=== PATIENT | male | born 1935 | race Hispanic/Latino ===

== ENCOUNTER 2022-08-23 07:03 | Day surgery (SDC) | payer OTHER, MEDICARE ==
[2022-08-21 12:44] LABS: BASOPHILS % (AUTO) 0.5 % (0.0-5.0); HEMATOCRIT 36.4 % (42-54); LYMPHOCYTES % (AUTO) 25.3 % (21.0-51.0); MEAN CORPUSCULAR HGB CONC 33.8 g/dL (32.0-36.0); MEAN CORPUSCULAR VOLUME 94.8 fL (79-99); MONOCYTES % (AUTO) 10.1 % (3.0-13.0); NEUTROPHILS % (AUTO) 61.9 % (40.0-77.0); PLATELET COUNT (AUTO) 223 K/uL (130-400); RED BLOOD CELL COUNT(AUTO) 3.84 MIL/uL (4.50-6.20); RED CELL DISTRIBUTION WIDTH 13.2 % (11.0-15.5); WHITE BLOOD COUNT (AUTO) 6.4 K/uL (4.8-10.8)
[2022-08-21 12:53] LABS: CREATININE 1.2 mg/dL (0.5-1.5); POTASSIUM 3.7 mmol/L (3.5-5.1)
[2022-08-21 12:56] VITALS: BP 140/59
[~2022-08-23] VITALS: Ht 157.5 cm; Wt 65.1 kg
[2022-08-23] VITALS (20 sets, daily range): BP systolic 99–186; BP diastolic 47–73
[~2022-08-23 07:03] MED LIST: FINA5TAB41 PO; LEVOFLOXACIN 500 MG/D5W 100 ML 100 ML IV SCH; LOSA1TAB42 PO; MITOMYCIN 40 MG SYR.W..INJ IV SCH; OMEP20CA12 PO; SERT-438 PO; SIMV-43 PO
[2022-08-23] MEDS ORDERED: LACTATED RINGERS 1000ML 1,000 ML IV ONE (08:04)
[2022-08-23] MEDS ORDERED: LIDOCAINE PF 100MG/5ML (2%) SYRINGE 5ML ONE (09:35)
[2022-08-23] MEDS ORDERED: DEXAMETHASONE SOD PHOSPHATE 10MG/ML 1ML VIAL ONE (09:35)
[2022-08-23] MEDS ORDERED: MIDAZOLAM HCL 1 MG/ML 2ML VIAL ONE (09:36)
[2022-08-23] MEDS ORDERED: ROCURONIUM 10MG/1ML SYR 10 MG/ML ML ONE (09:36)
[2022-08-23] MEDS ORDERED: PROPOFOL 10 MG/ML 20ML VIAL IV ONE (09:36)
[2022-08-23] MEDS ORDERED: ONDANSETRON 4MG INJ ONE (09:36)
[2022-08-23] MEDS ORDERED: FENTANYL CITRATE PF 50 MCG/1 ML 2ML VIAL ONE ×2 (09:36→11:25)
[2022-08-23] MEDS ORDERED: EPHEDRINE SULFATE 50 MG/ML AMPULE ONE (09:37)
[2022-08-23] MEDS ORDERED: IOHEXOL-350 50ML VIAL IV ONE (09:39)
[2022-08-23] MEDS ORDERED: HYDRALAZINE 20MG/ML VIAL ONE ×2 (10:33→12:52)
[2022-08-23] MEDS ORDERED: GLYCOPYRROLATE 1 MG/5 ML SYRINGE ONE (10:53)
[2022-08-23] MEDS ORDERED: NEOSTIGMINE 5MG/5ML SYR IV ONE (10:53)
[2022-08-23] MEDS ORDERED: MEPERIDINE-PF 25 MG/ML SYG ONE (10:58)
[2022-08-23] MEDS ORDERED: FLUMAZENIL 0.1MG/1ML 5ML VIAL IV ONE (12:20)
[2022-08-23] MEDS ORDERED: PHENAZOPYRIDINE HCL 200 MG TABLET ONE (13:30)
== END 2022-08-23 14:00 | disposition home or self-care (01) ==
LOC: DAH 07:03
PROVIDERS: ATTEND Urology
DX: R31.9 Hematuria, unspecified (principal); Z20.822 Contact with and (suspected) exposure to COVID-19; C67.1 Malignant neoplasm of dome of bladder; C67.4 Malignant neoplasm of posterior wall of bladder; N32.0 Bladder-neck obstruction; N28.1 Cyst of kidney, acquired; R97.20 Elevated prostate specific antigen [PSA]; I10 Essential (primary) hypertension; K21.9 Gastro-esophageal reflux disease without esophagitis; F17.200 Nicotine dependence, unspecified, uncomplicated; Z72.89 Other problems related to lifestyle; Z88.0 Allergy status to penicillin; Z98.890 Other specified postprocedural states
CPT/HCPCS: 80048; 85025; 87426; 36415; 93005; 52234; 51720; 88305; 74420; A6260; A4663; J7120 ×2; A4354; C1758; A4340; J3010 ×2; J3490 ×3; J1100; J2710; J1956; J2001; J0360 ×2; J2250; J2704; J2405; J2175; Q9967; A4358; A4215; A4223; A4222; A4221; J9280 ×2; A4510; A4600

== ENCOUNTER 2023-09-19 07:13 | Day surgery (SDC) | payer OTHER ==
[2023-09-17 12:44] VITALS: BP 153/76; PULSE 54; RESP 18
[2023-09-17 12:52] LABS: BASOPHILS # (AUTO) 0.03 K/uL (0.00-0.20); BASOPHILS % (AUTO) 0.6 % (0.0-5.0); EOSINOPHILS # (AUTO) 0.13 K/uL (0.00-0.70); EOSINOPHILS % (AUTO) 2.5 % (0.0-8.0); IMMATURE GRANULOCYTE ABSOLUTE 0.01 K/uL (0-1); LYMPHOCYTES # (AUTO) 1.9 K/uL (1.0-4.8); LYMPHOCYTES % (AUTO) 36.4 % (21.0-51.0); MEAN CORPUSCULAR HEMOGLOBIN 31.9 pg (27.0-33.0); MEAN CORPUSCULAR HGB CONC 33.3 g/dL (32.0-36.0); MEAN CORPUSCULAR VOLUME 95.7 fL (79-99); MONOCYTES # (AUTO) 0.5 K/uL (0.1-1.0); MONOCYTES % (AUTO) 9.5 % (3.0-13.0); NEUTROPHILS # (AUTO) 2.7 K/uL (1.8-7.7); NEUTROPHILS % (AUTO) 50.8 % (40.0-77.0); PLATELET COUNT (AUTO) 224 K/uL (130-400); RED BLOOD CELL COUNT(AUTO) 3.76 MIL/uL (4.50-6.20); RED CELL DISTRIBUTION WIDTH 13.1 % (11.0-15.5); WHITE BLOOD COUNT (AUTO) 5.3 K/uL (4.8-10.8)
[2023-09-17 13:17] LABS: POTASSIUM 3.7 mmol/L (3.5-5.1)
[~2023-09-19] VITALS: Ht 162.6 cm; Wt 64.3 kg
[2023-09-19] VITALS (17 sets, daily range): BP systolic 134–165; BP diastolic 54–78; PULSE 54–74; RESP 10–16
[~2023-09-19 07:13] MED LIST changes: -LEVOFLOXACIN 500 MG/D5W 100 ML 100 ML IV SCH; -MITOMYCIN 40 MG SYR.W..INJ IV SCH; -OMEP20CA12 PO
[2023-09-19] MEDS: LEVOFLOXACIN 500 MG/D5W 100 ML 100 ML ONE (08:00)
[2023-09-19] MEDS: LACTATED RINGERS 1000ML 1,000 ML IV ONE (08:00)
[2023-09-19] MEDS ORDERED: LIDOCAINE PF 100MG/5ML (2%) SYRINGE 5ML ONE (08:53)
[2023-09-19] MEDS ORDERED: PROPOFOL 10 MG/ML 20ML VIAL IV ONE (08:53)
[2023-09-19] MEDS ORDERED: ROCURONIUM BROMIDE 10MG/1ML 5ML VL ONE (08:53)
[2023-09-19] MEDS ORDERED: SUCCINYLCHOLINE CHLORIDE 20 MG/ML 10 ML VIAL ONE (08:53)
[2023-09-19] MEDS ORDERED: ONDANSETRON 4MG INJ ONE (08:53)
[2023-09-19] MEDS ORDERED: FENTANYL CITRATE PF 50 MCG/1 ML 2ML VIAL ONE ×2 (08:54→09:39)
[2023-09-19] MEDS: LEVOFLOXACIN 750 MG/D5W 150ML BAG IV ONE (09:05)
[2023-09-19] MEDS ORDERED: EPHEDRINE SULFATE 50 MG/ML AMPULE ONE (09:09)
[2023-09-19] MEDS ORDERED: DEXAMETHASONE SOD PHOSPHATE 10MG/ML 1ML VIAL ONE (09:40)
[2023-09-19] MEDS ORDERED: NEOSTIGMINE METHYLSULFATE 1MG/ML IV ONE (09:42)
[2023-09-19] MEDS ORDERED: GLYCOPYRROLATE 0.2 MG/ML 5 ML VIAL ONE (09:42)
[2023-09-19] MEDS ORDERED: TRANEXAMIC ACID 1000MG/10ML ONE (10:02)
[2023-09-19] MEDS: PHENAZOPYRIDINE HCL 200 MG TABLET PO ONE (11:53)
== END 2023-09-19 12:25 | disposition home or self-care (01) ==
LOC: DAH 07:13
PROVIDERS: ATTEND Urology
DX: N40.1 Benign prostatic hyperplasia with lower urinary tract symptoms (principal); R35.1 Nocturia; N13.8 Other obstructive and reflux uropathy; N32.89 Other specified disorders of bladder; I10 Essential (primary) hypertension; K21.9 Gastro-esophageal reflux disease without esophagitis; Z88.0 Allergy status to penicillin; Z98.890 Other specified postprocedural states; Z85.51 Personal history of malignant neoplasm of bladder
CPT/HCPCS: 80048; 85025; 36415; 93005; 52648; 88305; A6260; A4663; J7120 ×2; A4354; A4340; J3010 ×2; J3490 ×4; J1100; J0330; J2001; J2704; J2405; J2710; A4358; A4215; A4223; A4222; A4221; A4510; J1956 ×2; A4600

== ENCOUNTER → 2023-12-06 | Outpatient (CLI) | payer OTHER | END | disposition home or self-care (01) | LOC: SHCH 11:48 | PROVIDERS: ATTEND Internal Medicine Cardiovascular Disease | DX: I70.203 Unspecified atherosclerosis of native arteries of extremities, bilateral legs (principal) | CPT/HCPCS: 93925 ==